=== PATIENT | female | born 1975 | race Caucasian/White ===

== ENCOUNTER 2019-01-10 05:41 | Day surgery (SDC) | payer MEDICAID ==
[2019-01-05 14:26] LABS: BASOPHILS # (AUTO) 0.1 X10'3 (0-0.2); BASOPHILS % (AUTO) 0.7 % (0-1); EOSINOPHILS # (AUTO) 0.2 X10'3 (0-0.9); LYMPHOCYTES # (AUTO) 3.2 X10'3 (1.1-4.8); LYMPHOCYTES % (AUTO) 39.8 % (21-51); MEAN CORPUSCULAR HEMOGLOBIN 28.8 PG (27.0-31.0); MEAN CORPUSCULAR HGB CONC 33.3 g/dL (33.0-36.5); MEAN CORPUSCULAR VOLUME 86.7 FL (78-98); MEAN PLATELET VOLUME 8.1 FL (7.4-10.4); MONOCYTES # (AUTO) 0.7 X10'3 (0-0.9); MONOCYTES % (AUTO) 8.6 % (2-12); NEUTROPHILS # (AUTO) 3.9 X10'3 (1.8-7.7); NEUTROPHILS % (AUTO) 48.9 % (42-75); PRE OP HEMATOCRIT 42.2 % (35.0-45.0); PRE OP PLATELET COUNT 243 X10'3 (140-440); RED BLOOD COUNT 4.86 X10'6 (4.20-5.60); RED CELL DISTRIBUTION WIDTH 14.6 % (11.5-14.5)
[2019-01-05 14:45] LABS: ALBUMIN 3.1 G/DL (3.4-5.0); ALBUMIN/GLOBULIN RATIO 0.9 (1.1-1.5); ALKALINE PHOSPHATASE 78 IU/L (46-116); BLOOD UREA NITROGEN 13 MG/DL (7-18); BUN/CREATININE RATIO 17.6 (6.6-38.0); CALCIUM 8.5 MG/DL (8.5-10.1); CHLORIDE 111 MMOL/L (99-107); CREATININE 0.74 MG/DL (0.40-0.90); PRE OP ALT 20 U/L (30-65); PRE OP ANION GAP 7 (8-16); PRE OP AST 14 U/L (10-37); PRE OP BILIRUB, TOTAL 0.4 MG/DL (0.0-1.0); PRE OP GLUCOSE 88 MG/DL (70-104); PRE OP POTASSIUM 3.9 MMOL/L (3.4-5.1); PRE OP SODIUM 145 MMOL/L (135-145); TOTAL CARBON DIOXIDE 26.6 MMOL/L (24-32); TOTAL PROTEIN 6.4 G/DL (6.4-8.2); eGFR 85 ML/MIN
[~2019-01-10] VITALS: Ht 154.9 cm; Wt 110.0 kg
[~2019-01-10 05:41] MED LIST: LEVO50TA8 PO; ceFAZolin/D5W- 1GM premix 100 ML IV ONE; cefazolin/dext.iso 2gm/100ml 100 ML IV ONE; famotidine 20mg tablet PO ONE; ringers solution, lacted 1,000 ML IV SCH
[2019-01-10 05:45] VITALS: BP 139/71
[2019-01-10] MEDS ORDERED: BUPIVAcaine/PF 2.5mg/ml (0.25%) 10ml vial ONE (06:43)
[2019-01-10] MEDS ORDERED: LIDOcaine 0.5% (5mg/ml) 50ml vial ONE (07:41)
[2019-01-10] MEDS ORDERED: fentaNYL/PF 50MCG/1 ML 2ML syringe ONE ×2 (07:44→08:08)
[2019-01-10] MEDS ORDERED: midazolam 2 mg/2 ml injection ONE (07:44)
[2019-01-10 08:11] VITALS: BP 127/62
--- NOTE | 2019-01-10 08:11 | NUR ---
Received from OR via [facility] , accompanied by Anesthesiologist NAI and report given by Anesthesiolgist. PATIENT WITH 20G PIV IN LEFT UE RUNNING LR AT 100. PATIENT WITH WRIST SPLINT TO RIGHT WRIST THAT IS CDI. MIKO. + CAP REFILL. Addendum: 01/10/19 at 0820 by Jitendra Middleton RN, RN Amended: Links added.
[2019-01-10 08:21] VITALS: BP 107/62
[2019-01-10] MEDS ORDERED: HYDROcodone/acetaminophen 10/325mg tab PO PRN (08:25)
[2019-01-10 08:31] VITALS: BP 98/59
[2019-01-10 08:41] VITALS: BP 100/73
[2019-01-10 08:51] VITALS: BP 102/70
--- NOTE | 2019-01-10 09:01 | NUR ---
ALL DC CRITERIA HAS BEEN MET. IV TAKEN OUT WITHOUT COMPLICATIONS. ALL INSTRUCTIONS COVERED AND ALL QUESTIONS ANSWERED. DRESSINGS CDI. OUT VIA WHEELCHAIR TO PERSONAL VEHICLE WHERE PATIENT WAS SECURED IN AND DRIVEN HOME BY FAMILY. BOYFRIEND PRESENT TO DRIVE PATIENT HOME. ALL DC INSTRUCTIONS COVERED. DRESSING CDI AND ICE SENT WITH PATIENT. Addendum: 01/10/19 at 0938 by Jitendra Middleton RN, RN Amended: Links added.
== END 2019-01-10 09:01 | disposition home or self-care (01) ==
LOC: PAS 05:41
PROVIDERS: ATTEND Orthopaedic Surgery
DX: G56.01 Carpal tunnel syndrome, right upper limb (principal); K21.9 Gastro-esophageal reflux disease without esophagitis; F17.210 Nicotine dependence, cigarettes, uncomplicated; Z79.899 Other long term (current) drug therapy; Z98.890 Other specified postprocedural states; Z72.89 Other problems related to lifestyle
CPT/HCPCS: 36415; 64721; 80053; 82948; 84443; 85025; A6222; J0690; J2001; J2250; J3010; J3490; J7120; A4215; A4618; A6449; A6455; A7000